=== PATIENT | male | born 1965 | race Caucasian/White ===

== ENCOUNTER 2018-12-17 02:24 | Inpatient (IN) | payer BC ==
[2018-12-17] MEDS ORDERED: KETOROLAC 30 MG/ML 1 ML VIAL IVP STA (02:43)
[2018-12-17] MEDS ORDERED: MORPHINE SULFATE 4 MG/ML SYRINGE IV STA (02:43)
[2018-12-17] MEDS ORDERED: SODIUM CHLORIDE 0.9% 1,000 ML IV STA ×2 (02:43)
[2018-12-17] MEDS ORDERED: ONDANSETRON 4 MG/2 ML VIAL IVP STA (02:43)
--- NOTE | 2018-12-17 02:51 | ED ---
General Adult HPI - General Source: patient, RN notes reviewed, old records reviewed Mode of arrival: ambulatory Limitations: no limitations <Tiffany Gutiérrez - Last Filed: 12/17/18 03:41> <Laquita Gonzáles P - Last Filed: 12/17/18 04:21> - General Chief complaint: Abdominal Pain Stated complaint: abd pain Time Seen by Provider: 12/17/18 02:33 - History of Present Illness Initial comments: Patient is a pleasant 53-year-old male who presents emergency Department with complaints of right lower quadrant abdominal pain times one day. Patient states that over the past week he's had episodes of diarrhea. Patient states that the diarrhea somewhat subsided after he stopped eating over the past few days. He reports that today he did eat some soup and had some episodes of vomiting afterwards. Patient reports that he had surgery to remove his abdominal muscles to attach to leg for reconstruction susrgery at [facility] over 20 years ago. Patient states that he has extensive scar tissue over right upper quadrant. Patient denies any recent fever, chills, shortness of breath, chest pain, back pain, numbness or tingling, dysuria or hematuria, constipation or diarrhea, headaches or visual changes, or any other current symptoms. ( Tiffany Gutiérrez) - Related Data Allergies Allergy/AdvReac Type Severity Reaction Status Date / Time No Known Allergies Allergy Verified 12/17/18 02:32 Review of Systems ROS Other: All systems not noted in ROS Statement are negative. <Tiffany Gutiérrez - Last Filed: 12/17/18 03:41> ROS Other: All systems not noted in ROS Statement are negative. <Laquita Gonzáles - Last Filed: 12/17/18 04:21> ROS Statement: Those systems with pertinent positive or pertinent negative responses have been documented in the HPI. Past Medical History History of Any Multi-Drug Resistant Organisms: None Reported Past Surgical History: Bariatric Surgery, Orthopedic Surgery Past Psychological History: No Psychological Hx Reported Smoking Status: Current every day smoker Past Alcohol Use History: Occasional Past Drug Use History: None Reported <Tiffany Gutiérrez - Last Filed: 12/17/18 03:41> General Exam Limitations: no limitations General appearance: alert, in no apparent distress Head exam: Present: atraumatic Eye exam: Present: normal appearance, PERRL, EOMI. Absent: scleral icterus, conjunctival injection, periorbital swelling ENT exam: Present: normal exam, mucous membranes moist Neck exam: Present: normal inspection. Absent: tenderness, meningismus, lymphadenopathy Respiratory exam: Present: normal lung sounds bilaterally Cardiovascular Exam: Present: regular rate, normal rhythm, normal heart sounds. Absent: systolic murmur, diastolic murmur, rubs, gallop, clicks GI/Abdominal exam: Present: soft, tenderness (RLQ tenderness, scar tissue noted over Right abdomen), normal bowel sounds. Absent: distended, guarding, rebound , rigid Extremities exam: Present: normal inspection, full ROM, normal capillary refill. Absent: tenderness, pedal edema, joint swelling, calf tenderness Back exam: Present: normal inspection Neurological exam: Present: alert, oriented X3, CN II-XII intact Psychiatric exam: Present: normal affect, normal mood Skin exam: Present: warm, dry, intact, normal color. Absent: rash <Tiffany Gutiérrez - Last Filed: 12/17/18 03:41> <Laquita Gonzáles - Last Filed: 12/17/18 04:21> - General Exam Comments Initial Comments: 53 year old male. Moderate discomfort. (Tiffany Gutiérrez) Vital Signs 12/17/18 12/17/18 02:27 04:05 Temperature 98.5 F Pulse Rate 109 H 93 Respiratory 20 16 Rate Blood Pressure 156/102 130/83 O2 Sat by Pulse 96 100 Oximetry Medical Decision Making - Lab Data Result diagrams: 12/17/18 02:55 12/17/18 02:55 - Radiology Data Radiology results: report reviewed <Tiffany Gutiérrez - Last Filed: 12/17/18 03:41> - Lab Data Result diagrams: 12/17/18 02:55 12/17/18 02:55 <Laquita Gonzáles P - Last Filed: 12/17/18 04:21> - Medical Decision Making Patient is a 53-year-old male who presents today with complaints of right lower quadrant abdominal pain. Patient reports he has been having diarrhea for the past week and started to develop symptoms of a worsening right-sided abdominal pain all day today into the rubbing. He also reports a low-grade fever. At this time Patient has significant tenderness. He has a surgical history he had his abdominal wall muscles removed from leg reconstructive surgery over 30 years ago. He also states he's had a history of open-heart surgery for CABG. He states that he is not on any medication at this time. He denies chest pain shortness of breath. Patient at this time lab values are unremarkable. There was some mild leukocytosis noted. CT abdomen and pelvis was completed due to acute tenderness and guarding. There is evidence of acute appendicitis. No evidence of perforation this time. I started the Patient on IV Zosyn. Blood cultures were obtained. Patient's case discussed with Dr. watts who agrees to admission. Patient will be nothing by mouth. (Tiffany Gutiérrez) I personally saw and examined the patient. I reviewed and agree with the mid- level provider findings including all diagnostic interpretations and treatment plans as written. I discussed patient care with surgeon compression molding machine tender Dr. Watts who accepts patient to his service, recommends NPO, IVF, Pain medication, Antiemetics and Zosyn. Plan for OR in scrub tech. Patient was updated on plan. (Laquita Gonzáles) - Lab Data Lab Results 12/17/18 12/17/18 12/17/18 Range/Units 02:55 02:55 02:55 WBC 11.8 H (3.8-10.6) k/uL RBC 5.23 (4.30-5.90) m/uL Hgb 17.3 (13.0-17.5) gm/dL Hct 49.8 (39.0-53.0) % MCV 95.2 (80.0-100.0) fL MCH 33.1 (25.0-35.0) pg MCHC 34.8 (31.0-37.0) g/dL RDW 13.0 (11.5-15.5) % Plt Count 183 (150-450) k/uL Neutrophils % 82 % Lymphocytes % 9 % Monocytes % 6 % Eosinophils % 1 % Basophils % 0 % Neutrophils # 9.6 H (1.3-7.7) k/uL Lymphocytes # 1.1 (1.0-4.8) k/uL Monocytes # 0.8 (0-1.0) k/uL Eosinophils # 0.1 (0-0.7) k/uL Basophils # 0.0 (0-0.2) k/uL PT (9.0-12.0) sec INR (<1.2) APTT (22.0-30.0) sec Sodium 136 L (137-145) mmol/L Potassium 4.3 (3.5-5.1) mmol/L Chloride 101 (98-107) mmol/L Carbon Dioxide 22 (22-30) mmol/L Anion Gap 13 mmol/L BUN 11 (9-20) mg/dL Creatinine 0.73 (0.66-1.25) mg/dL Est GFR (CKD-EPI)AfAm >90 (>60 ml/min/1.73 sqM) Est GFR (CKD-EPI)NonAf >90 (>60 ml/min/1.73 sqM) Glucose 116 H (74-99) mg/dL Plasma Lactic Acid Casey 1.1 (0.7-2.0) mmol/L Calcium 9.4 (8.4-10.2) mg/dL Total Bilirubin 0.7 (0.2-1.3) mg/dL AST 27 (17-59) U/L ALT 63 (21-72) U/L Alkaline Phosphatase 98 (38-126) U/L Total Protein 7.2 (6.3-8.2) g/dL Albumin 4.4 (3.5-5.0) g/dL Amylase 45 (30-110) U/L Lipase 66 (23-300) U/L 12/17/18 Range/Units 02:55 WBC (3.8-10.6) k/uL RBC (4.30-5.90) m/uL Hgb (13.0-17.5) gm/dL Hct (39.0-53.0) % MCV (80.0-100.0) fL MCH (25.0-35.0) pg MCHC (31.0-37.0) g/dL RDW (11.5-15.5) % Plt Count (150-450) k/uL Neutrophils % % Lymphocytes % % Monocytes % % Eosinophils % % Basophils % % Neutrophils # (1.3-7.7) k/uL Lymphocytes # (1.0-4.8) k/uL Monocytes # (0-1.0) k/uL Eosinophils # (0-0.7) k/uL Basophils # (0-0.2) k/uL PT 10.2 (9.0-12.0) sec INR 0.9 (<1.2) APTT 26.6 (22.0-30.0) sec Sodium (137-145) mmol/L Potassium (3.5-5.1) mmol/L Chloride (98-107) mmol/L Carbon Dioxide (22-30) mmol/L Anion Gap mmol/L BUN (9-20) mg/dL Creatinine (0.66-1.25) mg/dL Est GFR (CKD-EPI)AfAm (>60 ml/min/1.73 sqM) Est GFR (CKD-EPI)NonAf (>60 ml/min/1.73 sqM) Glucose (74-99) mg/dL Plasma Lactic Acid Casey (0.7-2.0) mmol/L Calcium (8.4-10.2) mg/dL Total Bilirubin (0.2-1.3) mg/dL AST (17-59) U/L ALT (21-72) U/L Alkaline Phosphatase (38-126) U/L Total Protein (6.3-8.2) g/dL Albumin (3.5-5.0) g/dL Amylase (30-110) U/L Lipase (23-300) U/L - Radiology Data CT shows evidence of acute appendicitis without evidence of perforation or abscess. Indeterminate 2.7 cm right adrenal nodule recommended adrenal CT or MRI. Extensive sigmoid diverticulosis without have any evidence of diverticulitis. (Tiffany Gutiérrez) Disposition Is patient prescribed a controlled substance at d/c from ED?: No Time of Disposition: 03:46 <Tiffany Gutiérrez - Last Filed: 12/17/18 03:41> <Laquita Gonzáles - Last Filed: 12/17/18 04:21> Clinical Impression: Appendicitis Disposition: ADMITTED IP TO THIS HOSP Condition: Stable Addendum entered and electronically signed by Tiffany Gutiérrez PA-C 12/17/18 03 :54: EKG performed for surgery clearance. Normal sinus rhythm pulmonary disease pattern. Incomplete right bundle branch block. Left anterior fascicular block. Ventricular rate of 94 beats minute. Pulse 204. QRS duration 112 ms. QT QTc is 350/437 ms.
[2018-12-17 03:20] LABS: Basophils % (A) 0 %; Eosinophils # (A) 0.1 k/uL (0-0.7); Eosinophils % (A) 1 %; HCT 49.8 % (39.0-53.0); HGB 17.3 gm/dL (13.0-17.5); Lymphocytes # (A) 1.1 k/uL (1.0-4.8); Lymphocytes % (A) 9 %; MCH 33.1 pg (25.0-35.0); MCHC 34.8 g/dL (31.0-37.0); MCV 95.2 fL (80.0-100.0); Mean Platelet Volume 6.4; Monocytes # (A) 0.8 k/uL (0-1.0); Monocytes % (A) 6 %; Neutrophils # (A) 9.6 k/uL (1.3-7.7); Neutrophils % (A) 82 %; Platelet Count 183 k/uL (150-450); RBC 5.23 m/uL (4.30-5.90); WBC 11.8 k/uL (3.8-10.6)
[2018-12-17 03:30] LABS: ALT 63 U/L (21-72); AST 27 U/L (17-59); Albumin 4.4 g/dL (3.5-5.0); Alkaline Phosphatase 98 U/L (38-126); Amylase 45 U/L (30-110); Anion Gap 13 mmol/L; Blood Urea Nitrogen 11 mg/dL (9-20); Calcium 9.4 mg/dL (8.4-10.2); Carbon Dioxide 22 mmol/L (22-30); Chloride 101 mmol/L (98-107); Glucose 116 mg/dL (74-99); Lipase 66 U/L (23-300); Potassium 4.3 mmol/L (3.5-5.1); Sodium 136 mmol/L (137-145); Total Bilirubin 0.7 mg/dL (0.2-1.3); Total Protein 7.2 g/dL (6.3-8.2)
[2018-12-17 03:31] LABS: INR 0.9 (<1.2); Partial Thromboplastin Time 26.6 sec (22.0-30.0); Prothrombin Time 10.2 sec (9.0-12.0)
--- NOTE | 2018-12-17 03:35 | CT ---
EXAM: CT Abdomen and Pelvis With Intravenous Contrast CLINICAL HISTORY: ITS.REASON CT Reason: RLQ pain TECHNIQUE: Axial computed tomography images of the abdomen and pelvis with intravenous contrast. CTDI is 15.8, 18.5 mGy and DLP is 924.3, 565.3 mGy- cm. This CT exam was performed using one or more of the following dose reduction techniques: automated exposure control, adjustment of the mA and/or kV according to patient size, and/or use of iterative reconstruction technique. Delayed imaging was performed. COMPARISON: None. FINDINGS: Lung bases: Unremarkable. No mass. No consolidation. ABDOMEN: Liver: Unremarkable. No mass. Gallbladder and bile ducts: Unremarkable. No calcified stones. No ductal dilation. Pancreas: Unremarkable. No mass. No ductal dilation. Spleen: Unremarkable. No splenomegaly. Adrenals: Indeterminate 2.7 cm right adrenal nodule. Kidneys and ureters: Indeterminate 1.4 cm right renal hypodensity. This could be evaluated with renal CT or MRI. No hydronephrosis. Stomach and bowel: Extensive sigmoid colon diverticulosis without evidence of diverticulitis. No obstruction. PELVIS: Appendix: Appendicolith at the base of the appendix with dilated, fluid-filled appendix measuring up to 17 mm with periappendiceal fat stranding. Bladder: Unremarkable. No mass. Reproductive: Unremarkable as visualized. ABDOMEN and PELVIS: Intraperitoneal space: Unremarkable. No free air. No significant fluid collection. Bones/joints: No acute fracture. No dislocation. Soft tissues: Unremarkable. Vasculature: Atherosclerotic calcification throughout the abdominal aorta and its branches. No abdominal aortic aneurysm. Lymph nodes: Unremarkable. No enlarged lymph nodes. IMPRESSION: 1. Acute appendicitis without evidence of perforation or abscess. 2. Indeterminate 2.7 cm right adrenal nodule. Recommend dedicated adrenal CT or MRI. 3. Extensive sigmoid colon diverticulosis without evidence of diverticulitis. Critical Value Communications 12/17/18 03:41 Call Doctor Regarding Appendicitis, called Dr. Gonzáles on 12/17 03:41 (-05:00)
[2018-12-17] MEDS ORDERED: ONDANSETRON 4 MG/2 ML VIAL IVP PRN (03:38)
[2018-12-17] MEDS ORDERED: NALOXONE 0.4 MG/ML 1 ML VIAL IV PRN (03:38)
[2018-12-17] MEDS ORDERED: MORPHINE SULFATE 4 MG/ML SYRINGE IV PRN (03:38)
[2018-12-17] MEDS ORDERED: PIPERACILLIN-TAZOBACTAM 3.375 GM in SODIUM CHLORIDE 0.9% 100 ML IVPB STA (03:40)
[2018-12-17 03:57] LABS: Appearance,Urine Clear (Clear); Bilirubin,Urine Negative (Negative); Blood,Urine Negative (Negative); Color,Urine Yellow; Glucose,Urine (UA) Negative (Negative); Ketones,Urine Negative (Negative); Leukocyte Esterase,Urine Negative (Negative); Nitrite,Urine Negative (Negative); PH, Urine 5.5 (5.0-8.0); Protein,Urine Negative (Negative); Specific Gravity,Urine 1.041 (1.001-1.035); Urobilinogen,Urine <2.0 mg/dL (<2.0)
[2018-12-17] MEDS ORDERED: METOCLOPRAMIDE 5 MG/ML 2 ML VIAL IVP STA (05:09)
[2018-12-17] MEDS: HYDROmorphone 1 MG/ML 1 ML SYRINGE IVP PRN ×6 (05:33→23:52)
[2018-12-17] MEDS: SODIUM CHLORIDE 0.9% 1,000 ML IV SCH ×2 (06:15→17:13)
[2018-12-17] MEDS: ONDANSETRON 4 MG/2 ML VIAL IVP PRN ×2 (09:51→22:55)
--- NOTE | 2018-12-17 11:29 | P.GSHP ---
History of Present Illness H&P Date: 12/17/18 This is a 53-year-old male who began having diarrhea and some vague abdominal pain 1 week ago over the last 24-48 hrs. pain as been located in his right lower quadrant and been getting worse. He states he's never had pain like this before. He has a history of a CABG a year and a half ago he also has multiple abdominal reconstructions and multiple surgeries he's unsure of exactly his peritoneal cavity was never entered he states that his abdominal muscles were tucked behind his bladder. He is found have clinical signs consistent with acute appendicitis. General surgery was consult. Past Medical History Past Medical History: Myocardial Infarction ([place]) Last Myocardial Infarction Date:: 2016 History of Any Multi-Drug Resistant Organisms: None Reported Past Surgical History: Bariatric Surgery, Orthopedic Surgery Additional Past Surgical History / Comment(s): open heart surgery JUN 2017 several abdominal surgeries Past Anesthesia/Blood Transfusion Reactions: No Reported Reaction Past Psychological History: No Psychological Hx Reported Smoking Status: Current every day smoker Past Alcohol Use History: Occasional Past Drug Use History: None Reported - Past Family History Father Family Medical History: No Reported History Mother Family Medical History: No Reported History Medications and Allergies Home Medications Medication Instructions Recorded Confirmed Type Aspirin [Adult Low Dose Aspirin EC] 81 mg PO DAILY 12/17/18 12/17/18 History Omeprazole [PriLOSEC] 20 mg PO Q48H 12/17/18 12/17/18 History Allergies Allergy/AdvReac Type Severity Reaction Status Date / Time No Known Allergies Allergy Verified 12/17/18 07:57 Surgical - Exam Osteopathic Statement: *. No significant issues noted on an osteopathic structural exam other than those noted in the History and Physical/Consult. Vital Signs Temp Pulse Resp BP Pulse Ox 98.5 F 109 H 20 156/102 96 12/17/18 02:27 12/17/18 02:27 12/17/18 02:27 12/17/18 02:27 12/17/18 02:27 - General well developed, well nourished, no distress - Eyes PERRL - Neck trachea midline - Respiratory normal expansion, normal respiratory effort - Cardiovascular Rhythm: regular - Abdomen Tender to palpation right lower quadrant Abdomen: soft - Neurologic normal coordination, normal sensation - Psychiatric oriented to time, oriented to person, oriented to place Results - Labs 12/17/18 02:55 12/17/18 02:55 Abnormal Lab Results - Last 24 Hours (Table) 12/17/18 12/17/18 12/17/18 Range/Units 02:55 02:55 03:45 WBC 11.8 H (3.8-10.6) k/uL Neutrophils # 9.6 H (1.3-7.7) k/uL Sodium 136 L (137-145) mmol/L Glucose 116 H (74-99) mg/dL Ur Specific Council 1.041 H (1.001-1.035) Diabetes panel 12/17/18 Range/Units 02:55 Sodium 136 L (137-145) mmol/L Potassium 4.3 (3.5-5.1) mmol/L Chloride 101 (98-107) mmol/L Carbon Dioxide 22 (22-30) mmol/L BUN 11 (9-20) mg/dL Creatinine 0.73 (0.66-1.25) mg/dL Glucose 116 H (74-99) mg/dL Calcium 9.4 (8.4-10.2) mg/dL AST 27 (17-59) U/L ALT 63 (21-72) U/L Alkaline Phosphatase 98 (38-126) U/L Total Protein 7.2 (6.3-8.2) g/dL Albumin 4.4 (3.5-5.0) g/dL Calcium panel 12/17/18 Range/Units 02:55 Calcium 9.4 (8.4-10.2) mg/dL Albumin 4.4 (3.5-5.0) g/dL Pituitary panel 12/17/18 Range/Units 02:55 Sodium 136 L (137-145) mmol/L Potassium 4.3 (3.5-5.1) mmol/L Chloride 101 (98-107) mmol/L Carbon Dioxide 22 (22-30) mmol/L BUN 11 (9-20) mg/dL Creatinine 0.73 (0.66-1.25) mg/dL Glucose 116 H (74-99) mg/dL Calcium 9.4 (8.4-10.2) mg/dL Adrenal panel 12/17/18 Range/Units 02:55 Sodium 136 L (137-145) mmol/L Potassium 4.3 (3.5-5.1) mmol/L Chloride 101 (98-107) mmol/L Carbon Dioxide 22 (22-30) mmol/L BUN 11 (9-20) mg/dL Creatinine 0.73 (0.66-1.25) mg/dL Glucose 116 H (74-99) mg/dL Calcium 9.4 (8.4-10.2) mg/dL Total Bilirubin 0.7 (0.2-1.3) mg/dL AST 27 (17-59) U/L ALT 63 (21-72) U/L Alkaline Phosphatase 98 (38-126) U/L Total Protein 7.2 (6.3-8.2) g/dL Albumin 4.4 (3.5-5.0) g/dL Assessment and Plan Assessment: Acute appendicitis Plan: Nothing by mouth IV antibiotics pain control. Laparoscopic possible open appendectomy was discussed with the patient risks benefits alternatives clearly risks of bleeding infection damage shunting tissue need further operation need for conversion open. Ileocecectomy were all discussed patient stated he understood agreed consent
[2018-12-17] MEDS ORDERED: fentaNYL (PF) 50 MCG/ML 2 ML AMP ONE (11:50)
[2018-12-17] MEDS ORDERED: ROCURONIUM BROMIDE 10 MG/ML 10 ML VIAL IV ONE (11:50)
[2018-12-17] MEDS ORDERED: PROPOFOL 10 MG/ML 20 ML VIAL IV ONE (11:50)
[2018-12-17] MEDS ORDERED: NEOSTIGMINE 1 MG/ML 10 ML VIAL ONE (11:50)
[2018-12-17] MEDS ORDERED: MIDAZOLAM 2 MG/2 ML VIAL ONE (11:50)
[2018-12-17] MEDS ORDERED: SUCCINYLCHOLINE CHLORIDE VIAL 200 MG/10 ML VIAL IV ONE (11:50)
[2018-12-17] MEDS ORDERED: HYDROmorphone (PF) 1 MG/ML ONE (11:50)
[2018-12-17] MEDS ORDERED: HEPARIN SODIUM,PORCINE 5,000 UNIT/ML 1 ML VIAL ONE (11:50)
[2018-12-17] MEDS ORDERED: LIDOCAINE 1% INJ 10MG/ML (20 ML MDV) ONE (11:50)
[2018-12-17] MEDS ORDERED: GLYCOPYRROLATE 0.2 MG/ML 2 ML VIAL ONE (11:50)
[2018-12-17] MEDS ORDERED: IV FLUID CONTINUATION 1,000 ML IV ONE (11:53)
[2018-12-17] MEDS ORDERED: BUPIVACAIN-EPI 0.5%-1:200,000 30 ML VIAL SQ ONE ×2 (12:14)
[2018-12-17] MEDS: PIPERACILLIN-TAZOBACTAM 3.375 GM in SODIUM CHLORIDE 0.9% 100 ML IVPB SCH ×2 (12:42→19:36)
[2018-12-17] MEDS ORDERED: LACTATED RINGERS 1,000 ML IV ONE (12:54)
--- NOTE | 2018-12-17 13:01 | P.OP ---
Date of Procedure: 12/17/18 Preoperative Diagnosis: Acute appendicitis Postoperative Diagnosis: Acute gangrenous appendicitis Anesthesia: GETA Surgeon: Giovani Watts Estimated Blood Loss (ml): 5 Condition: stable Disposition: PACU Description of Procedure: Patient is brought operative suite remained in the supine position under general endotracheal anesthesia per Department of anesthesia was prepped and draped in usual sterile fashion timeout performed correct patient correct procedure correct site was verified a 5 mm incision was made 2 fingerbreadths below the costal margin at the midclavicular line at palmers point. Using a 5 mm Visiport the abdomen was entered under direct visualization and no injuries were noted was insufflated a 12 mm ports placed left lower quadrant and a 5 mm port was placed in the left mid abdomen. The appendix is visualized and the mesial appendix was taken down using the LigaSure device the appendix is noted to be gangrenous. An area at the base of the appendix at the base of the cecum was noted to be viable and the appendix was stapled across at the base the cecum using a 45 mm purple load Endo MADELYN stapler. Hemostasis was noted the appendix was removed in Endo Catch bag through the 12 mm port site. The area was irrigated and suctioned and hemostasis was once again noted. The 12 mm port site fascia was closed with a 0 Vicryl in a simple interrupted fashion with 8 of a Aravind-Curtis suture passer. The abdomen was desufflated and all ports removed under direct visualization. 4-0 Monocryl suture was used to close the skin incision sterile dressing was applied patient tolerated procedure well no apparent complications
[2018-12-17] MEDS ORDERED: HYDROmorphone 1 MG/ML 1 ML SYRINGE IVP ONE ×3 (13:55→14:10)
[2018-12-17] MEDS: HYDROcodone/APAP 5-325MG 1 EACH TAB PO PRN (22:55)
[2018-12-17 23:11] LABS: Basophils % (A) 0 %; Eosinophils # (A) 0.1 k/uL (0-0.7); Eosinophils % (A) 1 %; HCT 48.4 % (39.0-53.0); HGB 16.3 gm/dL (13.0-17.5); Lymphocytes # (A) 1.4 k/uL (1.0-4.8); Lymphocytes % (A) 11 %; MCH 32.5 pg (25.0-35.0); MCHC 33.7 g/dL (31.0-37.0); MCV 96.2 fL (80.0-100.0); Mean Platelet Volume 6.3; Monocytes # (A) 0.5 k/uL (0-1.0); Monocytes % (A) 4 %; Neutrophils # (A) 10.3 k/uL (1.3-7.7); Neutrophils % (A) 83 %; Platelet Count 164 k/uL (150-450); RBC 5.03 m/uL (4.30-5.90); WBC 12.5 k/uL (3.8-10.6)
[2018-12-18] MEDS: HYDROcodone/APAP 5-325MG 1 EACH TAB PO PRN ×2 (03:01→08:25)
[2018-12-18] MEDS: HYDROmorphone 1 MG/ML 1 ML SYRINGE IVP PRN ×7 (03:02→22:04)
[2018-12-18] MEDS: PIPERACILLIN-TAZOBACTAM 3.375 GM in SODIUM CHLORIDE 0.9% 100 ML IVPB SCH ×2 (06:14→17:04)
[2018-12-18] MEDS: SODIUM CHLORIDE 0.9% 1,000 ML IV SCH ×2 (06:14→22:03)
[2018-12-18] MEDS: ONDANSETRON 4 MG/2 ML VIAL IVP PRN ×2 (15:38→22:04)
[2018-12-18 16:34] LABS: Basophils # (A) 0.1 k/uL (0-0.2); Basophils % (A) 1 %; Eosinophils % (A) 0 %; HCT 43.8 % (39.0-53.0); HGB 15.1 gm/dL (13.0-17.5); Lymphocytes # (A) 1.5 k/uL (1.0-4.8); Lymphocytes % (A) 14 %; MCH 33.5 pg (25.0-35.0); MCHC 34.6 g/dL (31.0-37.0); MCV 96.8 fL (80.0-100.0); Mean Platelet Volume 6.8; Monocytes # (A) 0.5 k/uL (0-1.0); Monocytes % (A) 4 %; Neutrophils % (A) 80 %; Platelet Count 156 k/uL (150-450); RBC 4.52 m/uL (4.30-5.90); WBC 11.2 k/uL (3.8-10.6)
--- NOTE | 2018-12-18 19:13 | P.PN ---
Subjective Progress Note Date: 12/18/18 Patien doing well today, he is still having some pain however it is improved. He states he feels bloated and is passing minimal gas. No NV Objective - Vital Signs Vital signs: Vital Signs Temp 100.6 F H 12/18/18 18:19 Pulse 106 H 12/18/18 18:19 Resp 18 12/18/18 15:00 BP 123/73 12/18/18 15:00 Pulse Ox 93 L 12/18/18 15:00 Intake & Output 12/18/18 12/18/18 12/19/18 06:59 18:59 06:59 Intake Total 700 Balance 700 Intake: Intake, IV Titration 700 Amount Piperacillin-Tazobactam 3 100 .375 gm In Sodium Chloride 0.9% 100 ml @ 25 mls/hr IVPB Q8HR [facility] Rx# :[id number] Sodium Chloride 0.9% 1, 600 000 ml @ 75 mls/hr IV . [id number] [facility] Rx#:[id number] Other: # Voids 4 2 - Constitutional General appearance: Present: cooperative - Respiratory Details: nonlabored - Cardiovascular Rhythm: regular - Gastrointestinal Gastrointestinal Comment(s): S/expected TTP, mild distention - Labs CBC & Chem 7: 12/18/18 16:16 12/17/18 02:55 Labs: Abnormal Lab Results - Last 24 Hours (Table) 12/17/18 12/18/18 Range/Units 22:53 16:16 WBC 12.5 H 11.2 H (3.8-10.6) k/uL Neutrophils # 10.3 H 9.0 H (1.3-7.7) k/uL Microbiology - Last 24 Hours (Table) 12/17/18 03:45 Blood Culture - Preliminary Blood No Growth after 24 hours Assessment and Plan Assessment: Acute appendicitis POD#1 Lap appy Plan: Cont ABX, patient did have gangrenous appendicitis. Will continue clears for now , advance when patient begins feeling better and having more bowel function
[2018-12-18] MEDS: FAMOTIDINE 20 MG/2 ML VIAL IV SCH (22:04)
[2018-12-19] MEDS: PIPERACILLIN-TAZOBACTAM 3.375 GM in SODIUM CHLORIDE 0.9% 100 ML IVPB SCH ×3 (00:53→17:26)
[2018-12-19] MEDS: HYDROmorphone 1 MG/ML 1 ML SYRINGE IVP PRN ×5 (00:53→14:38)
[2018-12-19] MEDS: ONDANSETRON 4 MG/2 ML VIAL IVP PRN ×2 (04:14→11:26)
[2018-12-19] MEDS: FAMOTIDINE 20 MG/2 ML VIAL IV SCH (08:04)
[2018-12-19 08:07] LABS: Basophils % (A) 0 %; Eosinophils # (A) 0.1 k/uL (0-0.7); Eosinophils % (A) 1 %; HCT 43.8 % (39.0-53.0); HGB 14.8 gm/dL (13.0-17.5); Lymphocytes # (A) 1.6 k/uL (1.0-4.8); Lymphocytes % (A) 15 %; MCH 32.8 pg (25.0-35.0); MCHC 33.8 g/dL (31.0-37.0); MCV 96.9 fL (80.0-100.0); Mean Platelet Volume 6.8; Monocytes # (A) 0.5 k/uL (0-1.0); Monocytes % (A) 5 %; Neutrophils # (A) 8.5 k/uL (1.3-7.7); Neutrophils % (A) 78 %; Platelet Count 151 k/uL (150-450); RBC 4.52 m/uL (4.30-5.90); RDW 12.8 % (11.5-15.5); WBC 10.9 k/uL (3.8-10.6)
[2018-12-19] MEDS: SODIUM CHLORIDE 0.9% 1,000 ML IV SCH (11:25)
--- NOTE | 2018-12-19 12:05 | P.PN ---
Subjective Progress Note Date: 12/19/18 Patient states he's feeling a little better today. He denies any nausea vomiting. He is still bloated he said he passed a very small amount of gas. No bowel movement Objective - Vital Signs Vital signs: Vital Signs Temp 99.0 F 12/19/18 07:00 Pulse 96 12/19/18 07:00 Resp 18 12/19/18 07:00 BP 112/69 12/19/18 07:00 Pulse Ox 93 L 12/19/18 07:00 Intake & Output 12/18/18 12/19/18 12/19/18 18:59 06:59 18:59 Intake Total 700 Balance 700 Intake: Intake, IV Titration 700 Amount Piperacillin-Tazobactam 3 100 .375 gm In Sodium Chloride 0.9% 100 ml @ 25 mls/hr IVPB Q8HR [facility] Rx# :[id number] Sodium Chloride 0.9% 1, 600 000 ml @ 75 mls/hr IV . [id number] [facility] Rx#:[id number] Other: # Voids 2 1 - Constitutional General appearance: Present: cooperative - Respiratory Details: Nonlabored - Cardiovascular Rhythm: regular - Gastrointestinal Gastrointestinal Comment(s): Soft mild distention mild tenderness palpation incisions clean dry and intact - Psychiatric Psychiatric: Present: A&O x's 3 - Labs CBC & Chem 7: 12/19/18 07:51 12/17/18 02:55 Labs: Abnormal Lab Results - Last 24 Hours (Table) 12/18/18 12/19/18 Range/Units 16:16 07:51 WBC 11.2 H 10.9 H (3.8-10.6) k/uL Neutrophils # 9.0 H 8.5 H (1.3-7.7) k/uL Microbiology - Last 24 Hours (Table) 12/17/18 03:45 Blood Culture - Preliminary Blood No Growth after 48 hours 12/17/18 23:13 Blood Culture - Preliminary Blood No Growth after 24 hours 12/17/18 22:53 Blood Culture - Preliminary Blood No Growth after 24 hours Assessment and Plan Assessment: Acute gangrenous appendicitis POD#2 Lap appy Plan: Cont ABX, patient did have gangrenous appendicitis. Will continue clears for now , advance when patient begins to have more bowel function. I encouraged ambulation incentive spirometry
[2018-12-19] MEDS: HYDROcodone/APAP 5-325MG 1 EACH TAB PO PRN ×2 (17:26→22:08)
[2018-12-19] MEDS: FAMOTIDINE 20 MG TAB PO SCH (22:08)
[2018-12-20] MEDS: PIPERACILLIN-TAZOBACTAM 3.375 GM in SODIUM CHLORIDE 0.9% 100 ML IVPB SCH ×3 (00:46→15:57)
[2018-12-20] MEDS: HYDROcodone/APAP 5-325MG 1 EACH TAB PO PRN (04:24)
[2018-12-20] MEDS: SODIUM CHLORIDE 0.9% 1,000 ML IV SCH ×2 (06:25→08:01)
[2018-12-20] MEDS: FAMOTIDINE 20 MG TAB PO SCH (07:59)
[2018-12-20 15:09] VITALS: BP 119/76; PULSE 79; RESP 16; TEMP 98.7
--- NOTE | 2018-12-20 16:53 | P.DS ---
Providers Date of admission: 12/17/18 13:31 Attending physician: Giovani Watts DO Primary care physician: Stated None Hospital Course: Patient is admitted to the hospital with acute appendicitis he underwent laparoscopic appendectomy. This revealed gangrenous appendicitis. Postoperatively the patient's pain was improved however he did have some bloating and nausea he was not passing gas he had a postop ileus. He was given clear liquids on postop day 1 and began passing gas on postoperative day 2 the patient was still passing gas had not had a bowel movement he was still feeling a moderate amount of pain. On postop day 3 was tolerating a full liquid and regular diet. He passed more gas. He was feeling much better he was discharged home in stable condition with instructions to follow-up in the clinic. Procedures: Ned Appy Patient Condition at Discharge: Stable Plan - Discharge Summary Discharge Rx Participant: No New Discharge Prescriptions: New Amoxic-Pot Clav 875-125Mg [Augmentin 875-125] 1 tab PO Q12HR 5 Days #10 tablet Docusate [Colace] 100 mg PO DAILY #10 capsule HYDROcodone/APAP 5-325MG [Cascade 5-325] 1 tab PO Q4HR PRN 3 Days #18 tab PRN Reason: Pain No Action Omeprazole [PriLOSEC] 20 mg PO Q48H Aspirin [Adult Low Dose Aspirin EC] 81 mg PO DAILY Discharge Medication List Aspirin [Adult Low Dose Aspirin EC] 81 mg PO DAILY 12/17/18 [History] Omeprazole [PriLOSEC] 20 mg PO Q48H 12/17/18 [History] Amoxic-Pot Clav 875-125Mg [Augmentin 875-125] 1 tab PO Q12HR 5 Days #10 tablet 12/20/18 [Rx] Docusate [Colace] 100 mg PO DAILY #10 capsule 12/20/18 [Rx] HYDROcodone/APAP 5-325MG [Cascade 5-325] 1 tab PO Q4HR PRN 3 Days #18 tab [Rx] Follow up Appointment(s)/Referral(s): Giovani Watts DO [Doctor of Osteopathic Medicine] - 1 Week Activity/Diet/Wound Care/Special Instructions: Regular diet, no lifting over 10 lbs for 2 weeks Discharge Disposition: HOME SELF-CARE
--- NOTE | 2018-12-21 10:12 | CDI ---
Documentation Clarification Form Date: 12/21/2018 9:54:49 AM From: Tanisha Horan Phone: If you have a question about this query, please contact Pat Beltrán [employer] at [phone] between 8am and 5pm. Admit Date: 12/17/2018 1:31:00 PM Patient Name: Krishan Duong Visit Number: [id number] Discharge Date: 12/20/2018 5:30:00 PM ATTENTION: The Clinical Documentation Specialists (CDI) and [facility] Coding Staff appreciate your assistance in clarifying documentation. Please respond to the clarification below the line at the bottom and electronically sign. The CDI & [facility] Coding staff will review the response and follow-up if needed. Please note: Queries are made part of the Legal Health Record. If you have any questions, please contact the author of this message via ITS. Dr. Giovani Watts Postop ileus is documented in the DCS. Patients Admitting Diagnosis: Acute appendicitis Post-Operative Diagnosis: Acute gangrenous appendicitis Procedure performed: Laparoscopic appendectomy Clinical Indicators: Bloating after surgery In order to accurately reflect this patients severity of illness, please clarify if the post-operative ileus is: An expected post-procedural or post-surgical condition Integral to the procedure Inherent to the procedure ?An unexpected post-procedural or post-surgical condition related to surgical care ?Other, please specify ?Unable to determine An expected post-procedural or post-surgical condition MTDD
== END 2018-12-20 17:30 | disposition home or self-care (01) | DRG 342 ==
LOC: EC 02:24 → 4MS4W 03:40 → OBSVTOIN 13:31
PROVIDERS: ADMIT Student in an Organized Health Care Education/Training Program; ATTEND Student in an Organized Health Care Education/Training Program
PROC: 0DTJ4ZZ Resection of Appendix, Percutaneous Endoscopic Approach (ICD-10-PCS; principal; 2018-12-17 11:00)
DX: K35.891 Other acute appendicitis without perforation, with gangrene (principal); K56.7 Ileus, unspecified; F17.210 Nicotine dependence, cigarettes, uncomplicated; I25.2 Old myocardial infarction; Z79.82 Long term (current) use of aspirin; Z95.1 Presence of aortocoronary bypass graft; Z98.84 Bariatric surgery status; I25.10 Atherosclerotic heart disease of native coronary artery without angina pectoris
CPT/HCPCS: 36415; 74177; 80053; 81003; 82150; 83605; 83690; 85025; 85610; 85730; 87040; 88304; 93005; 96361; 96374; 96375; 99285

== ENCOUNTER 2020-08-17 14:03 | Emergency (ER) | payer BC ==
[2020-08-17 14:18] VITALS: BP 145/91; PULSE 88; RESP 20
[2020-08-17 14:27] VITALS: TEMP 99.5
[2020-08-17] MEDS ORDERED: IBUPROFEN 600 MG TAB PO STA (14:36)
[2020-08-17 14:55] LABS: Basophils % (A) 0 %; Eosinophils # (A) 0.2 k/uL (0-0.7); Eosinophils % (A) 2 %; HCT 47.5 % (39.0-53.0); HGB 15.9 gm/dL (13.0-17.5); Lymphocytes # (A) 2.2 k/uL (1.0-4.8); Lymphocytes % (A) 34 %; MCH 33.2 pg (25.0-35.0); MCHC 33.5 g/dL (31.0-37.0); MCV 99.2 fL (80.0-100.0); Mean Platelet Volume 7.5; Monocytes # (A) 0.4 k/uL (0-1.0); Monocytes % (A) 5 %; Neutrophils # (A) 3.7 k/uL (1.3-7.7); Neutrophils % (A) 57 %; Platelet Count 141 k/uL (150-450); RBC 4.79 m/uL (4.30-5.90); RDW 13.3 % (11.5-15.5); WBC 6.4 k/uL (3.8-10.6)
[2020-08-17] MEDS ORDERED: DIPH,PERTUS(ACELL)TETVAC-LF 0.5 ML VIAL IM ONE (15:05)
--- NOTE | 2020-08-17 15:06 | ED ---
Recheck HPI - General Chief Complaint: Recheck/Abnormal Lab/Rx Stated Complaint: Knife wound Right ankle Time Seen by Provider: 08/17/20 14:26 Source: patient Mode of arrival: ambulatory Limitations: no limitations - History of Present Illness Initial Comments: Patient is a 55-year-old male presenting to the emergency Department with complaints of right ankle pain after an injury 2 days ago. Patient states he was filleting some chicken with a very sharp filet knife when it slipped out of his hand and the knife landed in the medial side of his right ankle. Patient states the knife did stick an. He did pull it out and washed the wound. He states it bled for just a few seconds and then stopped. He states he felt fine afterwards. Patient states yesterday he started to have some soreness of his right ankle but still is able to walk normally. Patient states today he is having a hard time walking secondary to pain and swelling in his right ankle. He denies any fever, chills, nausea, vomiting or chest pain. He does not remember his last tetanus vaccine. He states that he has a neighbor that is a foot doctor and he recommended starting to take some penicillin that he had at home. He states he has been taking this for 2 days. He denies any other medications. He has no other complaints at this time. Upon arrival to the ER, patient's temperature is 99.5, rest of vitals normal. - Related Data Home Medications Medication Instructions Recorded Confirmed Aspirin [Adult Low Dose Aspirin EC] 81 mg PO DAILY 12/17/18 12/17/18 Omeprazole [PriLOSEC] 20 mg PO Q48H 12/17/18 12/17/18 Previous Rx's Medication Instructions Recorded Amoxic-Pot Clav 875-125Mg 1 tab PO Q12HR 5 Days #10 tablet 12/20/18 [Augmentin 875-125] Docusate [Colace] 100 mg PO DAILY #10 capsule 12/20/18 HYDROcodone/APAP 5-325MG [Freedom 1 tab PO Q4HR PRN 3 Days #18 tab 12/20/18 5-325] Cephalexin [Keflex] 500 mg PO Q6HR 7 Days #28 cap 08/17/20 Sulfamethox-Tmp 800-160Mg [Bactrim 1 each PO Q12HR 7 Days #14 tab 10/17/20 Ds] Allergies Allergy/AdvReac Type Severity Reaction Status Date / Time No Known Allergies Allergy Verified 08/17/20 14:18 Review of Systems ROS Statement: Those systems with pertinent positive or pertinent negative responses have been documented in the HPI. ROS Other: All systems not noted in ROS Statement are negative. Past Medical History Past Medical History: Myocardial Infarction ([place]) Last Myocardial Infarction Date:: 2016 History of Any Multi-Drug Resistant Organisms: None Reported Past Surgical History: Bariatric Surgery, Orthopedic Surgery Additional Past Surgical History / Comment(s): open heart surgery JUN 2017 several abdominal surgeries Past Anesthesia/Blood Transfusion Reactions: No Reported Reaction Past Psychological History: No Psychological Hx Reported Smoking Status: Never smoker Past Alcohol Use History: Occasional Past Drug Use History: None Reported - Past Family History Father Family Medical History: No Reported History Mother Family Medical History: No Reported History General Exam - General Exam Comments Initial Comments: GENERAL: Patient is well-developed and well-nourished. Patient is nontoxic and in no acute distress. HEAD: Atraumatic, normocephalic. EYES: Pupils equal round and reactive to light, extraocular movements intact, sclera anicteric, conjunctiva are normal. Eyelids were unremarkable. ENT: TMs normal, nares patent, oropharynx clear without exudates. Moist mucous membranes. NECK: Normal range of motion, supple without lymphadenopathy or JVD. LUNGS: Unlabored respirations. Breath sounds clear to auscultation bilaterally and equal. No wheezes rales or rhonchi. HEART: Regular rate and rhythm without murmurs, rubs or gallops. ABDOMEN: Soft, nontender, normoactive bowel sounds. No guarding, no rebound. No masses appreciated. : Deferred MUSCULOSKELETAL: The patient has pain with palpation of the medial aspect of the right ankle, there is some surrounding erythema of the medial ankle and some significant swelling compared to the left ankle. He is neurovascular intact. He does have pain with active range of motion as well as weightbearing. No clubbing or cyanosis. NEUROLOGICAL: Patient is alert and oriented x 3. Motor and sensory are also intact. Cranial nerves II through XII grossly intact. Symmetrical smile. Normal speech. PSYCH: Normal mood, normal affect. SKIN: Warm, Dry, normal turgor, no rashes. Patient has a very superficial 0.5 cm wound to the medial ankle from where the knife fell. This area does appear erythematous, warm to the touch. Limitations: no limitations Course Vital Signs 08/17/20 08/17/20 14:14 14:26 Temperature 98.6 F 99.5 F Pulse Rate 88 Respiratory 20 Rate Blood Pressure 145/91 O2 Sat by Pulse 98 Oximetry Medical Decision Making - Medical Decision Making Patient is a 55-year-old male presenting with right ankle pain after a knife f ell into the medial aspect of his right ankle 2 days ago. He denies having fevers, temperatures 99.5 upon arrival today. His ankle does appear erythematous, painful to the touch, warm, swollen compared to the left ankle. X-rays show no acute bony abnormality, or foreign body. Labs show a normal white count, lactic acid is 1.9. I did update patient's tetanus today, ibuprofen for discomfort. I discussed with patient this does appear to be an infection secondary to the wound. 1 g of Rocephin before discharge. Patient is wanting to try oral antibiotics at home versus being admitted. I will start him on Keflex and the Bactrim and recommend he continue with ibuprofen or Tylenol for discomfort. I will give him a starter pack of Ultram for severe pain. He needs to continue to elevate the leg. Patient is in agreement with this plan of care. Strict return parameters were discussed with the patient and he verbalized understanding. Case discussed with Dr. Jose. - Lab Data Result diagrams: 08/17/20 14:47 08/17/20 14:47 Lab Results 08/17/20 08/17/20 08/17/20 Range/Units 14:47 14:47 14:47 WBC 6.4 (3.8-10.6) k/uL RBC 4.79 (4.30-5.90) m/uL Hgb 15.9 (13.0-17.5) gm/dL Hct 47.5 (39.0-53.0) % MCV 99.2 (80.0-100.0) fL MCH 33.2 (25.0-35.0) pg MCHC 33.5 (31.0-37.0) g/dL RDW 13.3 (11.5-15.5) % Plt Count 141 L (150-450) k/uL Neutrophils % 57 % Lymphocytes % 34 % Monocytes % 5 % Eosinophils % 2 % Basophils % 0 % Neutrophils # 3.7 (1.3-7.7) k/uL Lymphocytes # 2.2 (1.0-4.8) k/uL Monocytes # 0.4 (0-1.0) k/uL Eosinophils # 0.2 (0-0.7) k/uL Basophils # 0.0 (0-0.2) k/uL Sodium 135 L (137-145) mmol/L Potassium 4.7 (3.5-5.1) mmol/L Chloride 105 (98-107) mmol/L Carbon Dioxide 21 L (22-30) mmol/L Anion Gap 9 mmol/L BUN 13 (9-20) mg/dL Creatinine 0.72 (0.66-1.25) mg/dL Est GFR (CKD-EPI)AfAm >90 (>60 ml/min/1.73 sqM) Est GFR (CKD-EPI)NonAf >90 (>60 ml/min/1.73 sqM) Glucose 188 H (74-99) mg/dL Plasma Lactic Acid Casey 1.9 (0.7-2.0) mmol/L Calcium 9.7 (8.4-10.2) mg/dL Total Bilirubin 1.0 (0.2-1.3) mg/dL AST 44 (17-59) U/L ALT 68 H (4-49) U/L Alkaline Phosphatase 101 (38-126) U/L Total Protein 7.6 (6.3-8.2) g/dL Albumin 4.8 (3.5-5.0) g/dL Disposition Clinical Impression: Right ankle pain, Cellulitis of right ankle Disposition: HOME SELF-CARE Condition: Stable Instructions (If sedation given, give patient instructions): Cellulitis (ED) Additional Instructions: Please return to the Emergency Department if symptoms worsen or any other concerns. X-ray and lab work today are normal. Take both antibiotics as prescribed. May continue with Tylenol and/or Motrin for discomfort, take the Ultram for severe pain. Follow-up with PCP as discussed. Prescriptions: Sulfamethox-Tmp 800-160Mg [Bactrim Ds] 1 each PO Q12HR 7 Days #14 tab Cephalexin [Keflex] 500 mg PO Q6HR 7 Days #28 cap Is patient prescribed a controlled substance at d/c from ED?: No Referrals: None,Stated [Primary Care Provider] - 1-2 days
[2020-08-17 15:07] LABS: ALT 68 U/L (4-49); African American GFR (CKD) >90 (>60 ml/min/1.73 sqM); Albumin 4.8 g/dL (3.5-5.0); Anion Gap 9 mmol/L; Blood Urea Nitrogen 13 mg/dL (9-20); Calcium 9.7 mg/dL (8.4-10.2); Carbon Dioxide 21 mmol/L (22-30); Chloride 105 mmol/L (98-107); Glucose 188 mg/dL (74-99); Non-African American GFR(CKD) >90 (>60 ml/min/1.73 sqM); Sodium 135 mmol/L (137-145); Total Protein 7.6 g/dL (6.3-8.2)
--- NOTE | 2020-08-17 15:11 | XR ---
EXAMINATION TYPE: XR ankle limited RT DATE OF EXAM: 08/17/2020 COMPARISON: NONE HISTORY: Puncture wound TECHNIQUE: 2 views FINDINGS: I see no fracture nor dislocation. There is some soft tissue swelling over the medial malle olus. Joint spaces are normal IMPRESSION: Soft tissue swelling. No fracture.
[2020-08-17 15:25] LABS: AST 44 U/L (17-59); Alkaline Phosphatase 101 U/L (38-126); Potassium 4.7 mmol/L (3.5-5.1)
[2020-08-17] MEDS ORDERED: cefTRIAXone IN SWFI 1,000 MG/10 ML SYRINGE IVP STA (15:48)
[2020-08-17] MEDS ORDERED: traMADol 50 MG STARTER PACK 3 TAB BTL PO STA (15:53)
== END 2020-08-17 16:06 | disposition home or self-care (01) ==
LOC: EC 14:03
DX: S90.911A Unspecified superficial injury of right ankle, initial encounter (principal); L03.115 Cellulitis of right lower limb; I25.2 Old myocardial infarction; Z79.82 Long term (current) use of aspirin; Z23 Encounter for immunization; W26.0XXA Contact with knife, initial encounter; Y93.G3 Activity, cooking and baking; Y92.69 Other specified industrial and construction area as the place of occurrence of the external cause; Y99.0 Civilian activity done for income or pay
CPT/HCPCS: 36415; 80053; 83605; 85025; 73600; 90715; 99284; 96374; 90471; J0696